=== PATIENT | male | born 2000 | race African-American/Black ===

== ENCOUNTER 2024-03-01 13:22 | Emergency (ER) | payer SELFPAY ==
[~2024-03-01] VITALS: Ht 180.3 cm; Wt 118.1 kg
[2024-03-01] MEDS: ETOMIDATE (2MG/ML) 20ML VIAL IV ONE (14:16)
[2024-03-01 14:26] VITALS: BP 150/97; TEMP 98.1
[2024-03-01] MEDS ORDERED: ERY05OO OP (14:27)
[2024-03-01 14:40] VITALS: PULSE 109; RESP 20
[2024-03-01 14:52] VITALS: O2SAT 96
[2024-03-01] MEDS: TETANUS-DIPTH-ACEL PERTUSSIS 0.5ML SYR Tdap IM ONE (14:57)
[2024-03-01] MEDS ORDERED: CEPH500C PO (15:23)
== END 2024-03-01 15:51 | disposition home or self-care (01) ==
LOC: ER 13:22 → EDBD 13:22 → ER 15:51
DX: T15.11XA Foreign body in conjunctival sac, right eye, initial encounter (principal); W44.8XXA Other foreign body entering into or through a natural orifice, initial encounter; Y93.89 Activity, other specified; Y92.89 Other specified places as the place of occurrence of the external cause; Y99.8 Other external cause status
CPT/HCPCS: 65220; 67938; 90471; 90715; 96374